=== PATIENT | female | born 1935 | race African-American/Black ===

== ENCOUNTER 2017-04-28 22:55 | Inpatient (IN) | payer MEDICARE, OTHER ==
[2017-04-28] MEDS ORDERED: VALSARTAN 160 MG TABLET PO ONE (23:33)
--- NOTE | 2017-04-28 23:37 | ER Document Report ---
ED General - General Chief Complaint: Weakness Stated Complaint: BLOOD PRESSURE ISSUE Time Seen by Provider: 04/28/17 23:20 Notes: Patient is an 82-year-old female presents with complaint of weakness. History is not clear. Son is at the bedside and said he can check on her today and she was lying on the couch unable to get up. She also bruising on her face from where she had fallen. Patient says she thinks she is fallen twice but does not really remember. She is also very hypertensive. Son found a small bag medications next to her bed and found other medications throughout the house. It appears that she has not been taking most of these medications. Patient herself says she does not remember which medications she has been taking her family. She denies any pain at this time. She denies any recent fevers or infections. The son says he last saw HER-2 weeks ago and she was walking acting completely normally. When he found her today she is unable to even sit up off the couch. Patient denies feeling nauseous or sick in her stomach. TRAVEL OUTSIDE OF THE [place] IN LAST 30 DAYS: No - Related Data Allergies/Adverse Reactions: No Known Allergies Allergy (Verified 04/28/17 22:56) Past Medical History - Social History Smoking Status: Never Smoker Frequency of alcohol use: None Drug Abuse: None Family History: Reviewed & Not Pertinent - Past Medical History Cardiac Medical History: Reports: Hx Hypercholesterolemia, Hx Hypertension Endocrine Medical History: Reports: Hx Diabetes Mellitus Type 2 Past Surgical History: Reports: Hx Oral Surgery - r hip replacement, Hx Orthopedic Surgery - r hip replacement - Immunizations Hx Diphtheria, Pertussis, Tetanus Vaccination: - unk Review of Systems - Review of Systems Notes: My Normal Review Basic REVIEW OF SYSTEMS: CONSTITUTIONAL : Denies fever, chills, or sweats. Denies recent illness. EENT: Denies eye, ear, throat, or mouth pain or symptoms. Denies nasal or sinus congestion. CARDIOVASCULAR: Denies chest pain. RESPIRATORY: Denies cough, cold, or chest congestion. Denies shortness of breath, difficulty breathing, or wheezing. GASTROINTESTINAL: Denies abdominal pain. Denies nausea, vomiting, or diarrhea. GENITOURINARY: Denies difficulty urinating, painful urination, burning, frequency, or blood in urine. MUSCULOSKELETAL: Denies neck or back pain or joint pain or swelling. SKIN: Denies rash or skin lesions. NEUROLOGICAL: Unclear if patient had loss of consciousness. She denies headache. Patient unable to ambulate. ALL OTHER SYSTEMS REVIEWED AND NEGATIVE. Physical Exam - Vital signs Vitals: Resp BP Pulse Ox 22 H 233/89 H 100 04/28/17 23:33 04/28/17 23:33 04/28/17 23:33 - Notes Notes: General Appearance: Well nourished, alert, cooperative, no acute distress, no obvious discomfort. Vitals: reviewed, See vital signs table. Head: Bruising on head and over anterior face. Eyes: PERRL, EOMI, Conjuctiva clear Mouth: No decreasd moisture Throat: No tonsillar inflammation, No airway obstruction, No lymphadenopathy Neck: Supple, no cervical spinal tenderness to palpation. No step-offs or deformities. Back: No thoracic or lumbar spine tenderness palpation. No step-offs or deformities. Lungs: No wheezing, No rales, No rhonci, No accessory muscle use, good air exchange bilaterally. Heart: Normal rate, Regular rythm, No murmur, no rub Abdomen: soft, No rigidity, No abdominal tenderness, No guarding, no rebound, no abdominal masses, no organomegaly Extremities: good pulses in all extremities, no swelling or tenderness in the extremities, no edema. Skin: warm, dry, appropriate color, multiple moles which patient and son say are chronic. Neuro: speech clear, oriented x 3, normal affect, she responds appropriately to most questions but appears to have difficulty remembering or at least recalling what is happened over the last week. When I asked the patient to stand up she is unable to even sit up out of bed on her own power. She has equal strength in both her hands and her feet. Strength with plantar and dorsiflexion against resistance is good. She has good distal sensation. Cranial nerves II through XII are intact. Course - Re-evaluation Re-evalutation: 04/29/17 04:53 Patient does have some worsening confusion during her stay here. It is unclear the exact cause. She may have had a stroke. If this is related to a stroke she is well outside the window for any type of thrombolytic treatment. This could also be hypertensive urgency. She does not have a fever or any signs of infection. She denies any pain anywhere. She denies headache or abdominal pain or chest pain. I did give her some of her home medications to help slowly bring down her blood pressure. I did not want to decrease her blood pressure too much. I did also speak with the hospitalist, Dr. Krueger, who agreed to admit the patient for further workup and treatment. Dictation of this chart was performed using voice recognition software; therefore, there may be some unintended grammatical errors. 04/29/17 04:56 - Vital Signs Vital signs: Temp Pulse Resp BP Pulse Ox 55 L 23 H 178/60 H 93 04/29/17 03:00 04/29/17 04:05 04/29/17 04:05 04/29/17 04:05 - Laboratory Result Diagrams: 04/29/17 00:15 04/29/17 00:15 Laboratory results interpreted by me: 04/29/17 04/29/17 04/29/17 00:15 00:15 00:15 RDW 15.7 H Plt Count 126 L Sodium 146.9 H Chloride 110 H BUN 23 H Creatinine 1.32 H Est GFR ( Amer) 47 L Est GFR (Non-Af Amer) 38 L Direct Bilirubin 0.7 H AST 107 H Creatine Kinase 2093 H CK-MB (CK-2) 20.70 H Urine Protein Urine Ketones Urine Blood 04/29/17 01:18 RDW Plt Count Sodium Chloride BUN Creatinine Est GFR ( Amer) Est GFR (Non-Af Amer) Direct Bilirubin AST Creatine Kinase CK-MB (CK-2) Urine Protein 100 H Urine Ketones TRACE H Urine Blood MODERATE H Discharge - Discharge Clinical Impression: Hypertensive urgency, Ataxia Condition: Stable Disposition: ADMITTED INPATIENT Admitting Provider: Hospitalist Unit Admitted: [facility]
[2017-04-29 00:35] LABS: ABSOLUTE BASOPHILS # (AUTO) 0.1 10^3/uL (0.0-0.2); ABSOLUTE LYMPHOCYTES (AUTO) 1.5 10^3/uL (0.5-4.7); ABSOLUTE MONOCYTES (AUTO) 0.7 10^3/uL (0.1-1.4); ABSOLUTE NEUT (AUTO) 4.2 10^3/uL (1.7-8.2); EOSINOPHILS % (AUTO) 0.7 % (0-6); HEMATOCRIT 44.9 % (36.0-47.0); HEMOGLOBIN 14.5 g/dL (12.0-15.5); LYMPHOCYTES % (AUTO) 22.8 % (13-45); MEAN CORPUSCULAR HEMOGLOBIN 27.8 pg (27.0-33.4); MEAN CORPUSCULAR HGB CONC 32.2 g/dL (32.0-36.0); MEAN CORPUSCULAR VOLUME 86 fl (80-97); MONOCYTES % (AUTO) 10.6 % (3-13); PLATELET COUNT 126 10^3/uL (150-450); RED CELL DISTRIBUTION WIDTH 15.7 % (11.5-14.0); SEGMENTED NEUTROPHILS % (AUTO) 64.9 % (42-78); TOTAL CELLS COUNTED % (AUTO) 100 %; WHITE BLOOD COUNT 6.4 10^3/uL (4.0-10.5)
[2017-04-29 00:42] LABS: ALANINE AMINOTRANSFERASE 42 U/L (9-52); ALBUMIN 4.4 g/dL (3.5-5.0); ALKALINE PHOSPHATASE 66 U/L (38-126); ANION GAP 12 (5-19); ASPARTATE AMINO TRANSFERASE 107 U/L (14-36); BILIRUBIN,DIRECT 0.7 mg/dL (0.0-0.4); BLOOD UREA NITROGEN 23 mg/dL (7-20); CALCIUM 10.1 mg/dL (8.4-10.2); CARBON DIOXIDE 25 mmol/L (22-30); CHLORIDE 110 mmol/L (98-107); GLUCOSE 92 mg/dL (75-110); SODIUM 146.9 mmol/L (137-145); TOTAL PROTEIN 8.1 g/dL (6.3-8.2)
[2017-04-29 00:55] LABS: CREATINE KINASE 2093 U/L (30-135)
[2017-04-29 00:58] LABS: CREATINE KINASE MB 20.7 ng/mL (<4.55)
[2017-04-29 01:01] LABS: TROPONIN I 0.065 ng/mL
--- NOTE | 2017-04-29 01:10 | RADIOLOGY REPORT (SQ) ---
EXAM DESCRIPTION: CHEST SINGLE VIEW CLINICAL HISTORY: 82 years Female, weakness COMPARISON: 04/27/17. NUMBER OF VIEWS/TECHNIQUE: 1/AP LIMITATIONS: None. FINDINGS: Mild enlargement of the cardiac silhouette. Atherosclerosis. Moderate lung volume. Mild osteoarthritis. IMPRESSION: Mild cardiac enlargement.
[2017-04-29] MEDS ORDERED: NEBIVOLOL HCL 10 MG TABLET PO ONE (01:11)
--- NOTE | 2017-04-29 01:15 | RADIOLOGY REPORT (SQ) ---
EXAM DESCRIPTION: CT HEAD WITHOUT CLINICAL HISTORY: 82 years Female, weakness,fall COMPARISON: None. TECHNIQUE: No contrast. This exam was performed according to our departmental dose-optimization program, which includes automated exposure control, adjustment of the mA and/or kV according to patient size and/or use of iterative reconstruction technique. FINDINGS: No hemorrhage. No mass, mass effect, or midline shift. 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 Brain and extra-axial structures appear intact. IMPRESSION: No acute findings.
[2017-04-29] MEDS ORDERED: CLONIDINE HCL 0.1 MG TABLET PO ONE (01:16)
--- NOTE | 2017-04-29 01:21 | RADIOLOGY REPORT (SQ) ---
EXAM DESCRIPTION: CT CERVICAL SPINE WITHOUT CLINICAL HISTORY: 82 years Female, weakness,fall COMPARISON: None. FINDINGS: No evidence of fracture or subluxation. Normal vertebral heights.Mild disc desiccation between the C3 and C5 levels. Mild T1-T2 disc desiccation. 1.4 cm low-attenuation nodule/lesion characterized as "not clinically significant"; no follow-up imaging recommended. Atherosclerosis. Unenhanced nuchal soft tissues, inferior cranium, and upper thorax appear otherwise grossly intact. Impression: No acute findings.
[2017-04-29] MEDS ORDERED: HYDROCHLOROTHIAZIDE 25 MG TABLET PO ONE (01:22)
[2017-04-29] MEDS ORDERED: MAG HYDROX/AL HYDROX/SIMETH SUSP 30 ML UDCUP PO PRN (01:30)
[2017-04-29 01:52] LABS: APPEARANCE,URINE CLEAR; BILIRUBIN,URINE NEGATIVE (NEGATIVE); COLOR,URINE YELLOW; GLUCOSE, URINE NEGATIVE (NEGATIVE); KETONES,URINE TRACE mg/dL (NEGATIVE); LEUKOCYTE ESTERASE,URINE NEGATIVE (NEGATIVE); NITRITE,URINE NEGATIVE (NEGATIVE); PROTEIN,URINE 100 mg/dL (NEGATIVE); URINE SPECIFIC GRAVITY 1.013; UROBILINOGEN,URINE NEGATIVE mg/dL (<2.0)
[2017-04-29] MEDS ORDERED: DEXTROSE 40% GEL 15 GM TUBE PO PRN ×2 (02:24)
[2017-04-29] MEDS ORDERED: DEXTROSE 50%-WATER 25 GM/50 ML DISP.SYRIN IV PRN ×2 (02:24)
[2017-04-29] MEDS ORDERED: GLUCAGON,HUMAN RECOMB 1 MG INJ IM PRN (02:24)
[2017-04-29] MEDS ORDERED: INSULIN LISPRO 100 UNIT/ML 3 ML VIAL SUBCUT PRN (02:24)
--- NOTE | 2017-04-29 02:37 | PDOC H&P ---
History of Present Illness Admission Date/PCP: 04/29/17 01:32 ISAC GREEN MD Patient complains of: Confusion History of Present Illness: DEANDRE MITCHELL is a 82 year old with a past medical history of hypertension, diabetes and vascular dementia. Patient presents with confusion and weakness after being found lying on the sofa for an estimated 24 hours with bruising over the left brow and inability to ambulate. She is a very poor historian and unable to provide details believing it is 1979. She was last seen at her baseline 2 weeks ago. Patient denies pain and is unaware of her medication regiment. In the emergency room she is found to have a workup remarkable for hypertensive emergency with a blood pressure of 220/90, acute renal failure and rhabdomyolysis. She receives IV had hydralazine and referred to the hospitalist for admission. Past Medical History Cardiac Medical History: Reports: Hyperlipidema, Hypertension Endocrine Medical History: Reports: Diabetes Mellitus Type 2 Psychiatric Medical History: Reports: Dementia Past Surgical History Past Surgical History: Reports: Orthopedic Surgery - r hip replacement Social History Information Source: Relative Lives with: Alone Smoking Status: Never Smoker Frequency of Alcohol Use: None Drugs: None - Advance Directive Resuscitation Status: Full Code Family History Family History: Hypertension Parental Family History Reviewed: Yes Children Family History Reviewed: Yes Sibling(s) Family History Reviewed.: Yes Medication/Allergy Home Medications: Acetaminophen with Codeine [Tylenol #3 Tablet] 1 each PO Q6HP PRN #14 tablet 08/02 Glipizide 2 mg PO DAILY 03/11/11 Nebivolol HCl [Bystolic] 40 mg PO DAILY 03/11/11 Naproxen 500 mg PO Q8 #30 tablet 07/23/15 Allergies/Adverse Reactions: No Known Allergies Allergy (Verified 04/28/17 22:56) Review of Systems ROS unobtainable: Due to mental status - Unobtainable Physical Exam Vital Signs: Temp Pulse Resp BP Pulse Ox 68 18 222/71 H 99 04/29/17 00:00 04/29/17 01:45 04/29/17 01:45 04/29/17 01:45 General appearance: PRESENT: cooperative, disheveled, mild distress. ABSENT: hard of hearing, morbidly obese, severe distress Head exam: PRESENT: other - Bruising over the left brow with dried blood, no open laceration Eye exam: PRESENT: conjunctiva pink, EOMI, PERRLA. ABSENT: scleral icterus Ear exam: PRESENT: normal external ear exam Mouth exam: PRESENT: moist, tongue midline Neck exam: ABSENT: carotid bruit, JVD, lymphadenopathy, thyromegaly Respiratory exam: PRESENT: clear to auscultation neelima. ABSENT: rales, rhonchi, wheezes Cardiovascular exam: PRESENT: RRR, systolic murmur. ABSENT: diastolic murmur, rubs Pulses: PRESENT: normal dorsalis pedis pul Vascular exam: PRESENT: normal capillary refill GI/Abdominal exam: PRESENT: normal bowel sounds, soft. ABSENT: distended, guarding, mass, organolmegaly, rebound, tenderness Rectal exam: PRESENT: deferred Extremities exam: PRESENT: +1 edema Neurological exam: PRESENT: alert, altered, awake, oriented to person, CN II- XII grossly intact. ABSENT: motor sensory deficit Psychiatric exam: PRESENT: appropriate affect, normal mood. ABSENT: homicidal ideation, suicidal ideation Skin exam: PRESENT: dry, intact, warm. ABSENT: cyanosis, rash Results Impressions: Chest X-Ray 04/28/17 23:30 IMPRESSION: Mild cardiac enlargement. Head CT 04/29/17 00:00 IMPRESSION: No acute findings. Assessment & Plan - Diagnosis (1) Vascular dementia Is this a current diagnosis for this admission?: Yes Plan: Supportive care, discharge planning for placement (2) Diabetes Is this a current diagnosis for this admission?: Yes Plan: Medication reconciliation, Humalog with sliding scale initiated (3) Rhabdomyolysis Is this a current diagnosis for this admission?: Yes Plan: Secondary to fall and prolonged immobility, specialty bed. Gentle IV fluids follow-up total CK (4) Hypertensive urgency Is this a current diagnosis for this admission?: Yes Plan: IV hydralazine, resume home Bystolic with as needed Vasotec. Avoid overcorrection given risk of watershed and chronically hypertensive patient. - Time Time Spent: 50 to 70 Minutes - Inpatient Certification Medical Necessity: Need Close Monitoring Due to Risk of Patient Decompensation
[2017-04-29] MEDS ORDERED: HYDRALAZINE HCL INJ/PF 20 MG/1 ML SDV IV ONE (03:17)
[2017-04-29] MEDS: HEPARIN SOD (PORCINE) 5,000 UNIT/ML 1 ML SYRINGE SUBCUT SCH ×3 (06:04→21:36)
[2017-04-29 07:09] LABS: CREATINE KINASE MB 20.6 ng/mL (<4.55); TROPONIN I 0.073 ng/mL
[2017-04-29] MEDS: ASPIRIN 81 MG TABLET, ENT COATED PO SCH (10:25)
[2017-04-29] MEDS: NEBIVOLOL HCL 10 MG TABLET PO SCH (10:25)
[2017-04-29] MEDS: DOCUSATE SODIUM 100 MG CAPSULE PO SCH ×2 (10:25→17:25)
[2017-04-29] MEDS: HYDRALAZINE HCL INJ/PF 20 MG/1 ML SDV IV PRN (11:38)
[2017-04-30] MEDS: HEPARIN SOD (PORCINE) 5,000 UNIT/ML 1 ML SYRINGE SUBCUT SCH ×3 (05:08→22:42)
[2017-04-30 07:11] LABS: ABSOLUTE EOSINOPHILS # (AUTO) 0.1 10^3/uL (0.0-0.6); ABSOLUTE LYMPHOCYTES (AUTO) 1.8 10^3/uL (0.5-4.7); ABSOLUTE MONOCYTES (AUTO) 0.5 10^3/uL (0.1-1.4); ABSOLUTE NEUT (AUTO) 1.9 10^3/uL (1.7-8.2); BASOPHILS % (AUTO) 0.3 % (0-2); HEMATOCRIT 41.8 % (36.0-47.0); HEMOGLOBIN 13.6 g/dL (12.0-15.5); LYMPHOCYTES % (AUTO) 41.2 % (13-45); MEAN CORPUSCULAR HEMOGLOBIN 27.8 pg (27.0-33.4); MEAN CORPUSCULAR HGB CONC 32.5 g/dL (32.0-36.0); MEAN CORPUSCULAR VOLUME 86 fl (80-97); MONOCYTES % (AUTO) 11.9 % (3-13); RED CELL DISTRIBUTION WIDTH 15.4 % (11.5-14.0); SEGMENTED NEUTROPHILS % (AUTO) 43.6 % (42-78); TOTAL CELLS COUNTED % (AUTO) 100 %; WHITE BLOOD COUNT 4.4 10^3/uL (4.0-10.5)
[2017-04-30 07:33] LABS: PLATELET COUNT 126 10^3/uL (150-450)
[2017-04-30 07:36] LABS: CHOLESTEROL 270.44 mg/dL (0-200); TRIGLYCERIDES 81 mg/dL (<150)
[2017-04-30 07:38] LABS: ANION GAP 9 (5-19); BLOOD UREA NITROGEN 24 mg/dL (7-20); CALCIUM 9.7 mg/dL (8.4-10.2); CARBON DIOXIDE 26 mmol/L (22-30); CHLORIDE 109 mmol/L (98-107); CREATINE KINASE 672 U/L (30-135); GLUCOSE 89 mg/dL (75-110); POTASSIUM 3.5 mmol/L (3.6-5.0); SODIUM 143.9 mmol/L (137-145)
[2017-04-30 07:47] LABS: DIRECT LDL 177 mg/dL (<100)
[2017-04-30] MEDS: HYDRALAZINE HCL INJ/PF 20 MG/1 ML SDV IV PRN (08:17)
[2017-04-30] MEDS: DOCUSATE SODIUM 100 MG CAPSULE PO SCH ×2 (10:57→17:53)
[2017-04-30] MEDS: ASPIRIN 81 MG TABLET, ENT COATED PO SCH (10:58)
[2017-04-30] MEDS: NEBIVOLOL HCL 10 MG TABLET PO SCH (10:58)
--- NOTE | 2017-04-30 14:51 | PDOC PROGRESS REPORT ---
Subjective Progress Note for:: 04/30/17 Subjective:: Patient admitted with the confusion as well as weakness and was found to have hypertensive encephalopathy with an initial blood pressure of 04/06/1989 as well as acute renal failure and rhabdomyolysis. Her confusion seems to have cleared and patient appears to be at baseline. Her blood pressures still intermittently hypertensive. Her creatinine remains at about 1.32 while her CPK is decreased from 2000-672 today. Reason For Visit: HTN EMERG, RHABDO Physical Exam Vital Signs: Temp Pulse Resp BP Pulse Ox 97.8 F 69 16 152/49 H 96 04/30/17 12:00 04/30/17 12:00 04/30/17 12:00 04/30/17 12:00 04/30/17 12:00 Intake & Output 04/29/17 04/30/17 05/01/17 06:59 06:59 06:59 Intake Total 260 Output Total 600 Balance -340 Weight 75.4 kg 75.5 kg General appearance: PRESENT: no acute distress, cooperative Head exam: PRESENT: atraumatic Ear exam: PRESENT: normal external ear exam Neck exam: ABSENT: carotid bruit, JVD, lymphadenopathy, thyromegaly Respiratory exam: PRESENT: clear to auscultation neelima. ABSENT: rales, rhonchi, wheezes Cardiovascular exam: PRESENT: RRR. ABSENT: diastolic murmur, rubs, systolic murmur GI/Abdominal exam: PRESENT: normal bowel sounds, soft. ABSENT: distended, guarding, mass, organolmegaly, rebound, tenderness Rectal exam: PRESENT: deferred Neurological exam: PRESENT: alert, awake, oriented to person, oriented to place , oriented to time Psychiatric exam: PRESENT: appropriate affect, normal mood. ABSENT: homicidal ideation, suicidal ideation Results Laboratory Results: 04/30/17 06:34 04/30/17 06:34 04/30/17 04/30/17 04/30/17 06:34 06:34 06:34 WBC 4.4 RBC 4.90 Hgb 13.6 Hct 41.8 MCV 86 MCH 27.8 MCHC 32.5 RDW 15.4 H Plt Count 126 L Seg Neutrophils % 43.6 Lymphocytes % 41.2 Monocytes % 11.9 Eosinophils % 3.0 Basophils % 0.3 Absolute Neutrophils 1.9 Absolute Lymphocytes 1.8 Absolute Monocytes 0.5 Absolute Eosinophils 0.1 Absolute Basophils 0.0 Sodium 143.9 Potassium 3.5 L Chloride 109 H Carbon Dioxide 26 Anion Gap 9 BUN 24 H Creatinine 1.31 H Est GFR ( Amer) 47 L Est GFR (Non-Af Amer) 39 L Glucose 89 Calcium 9.7 Triglycerides 81 Cholesterol 270.44 H LDL Cholesterol Direct 177 H VLDL Cholesterol 16.0 HDL Cholesterol 59 04/29/17 04/29/17 04/29/17 06:35 06:35 06:35 Creatine Kinase 1229 H CK-MB (CK-2) 20.60 H Cancelled Troponin I 0.073 04/29/17 04/29/17 04/29/17 12:41 12:41 19:20 Creatine Kinase CK-MB (CK-2) 16.70 H Troponin I 0.048 0.051 04/30/17 06:34 Creatine Kinase 672 H CK-MB (CK-2) Troponin I Impressions: Chest X-Ray 04/28/17 23:30 IMPRESSION: Mild cardiac enlargement. Head CT 04/29/17 00:00 IMPRESSION: No acute findings. Assessment & Plan - Diagnosis (1) Hypertensive urgency Is this a current diagnosis for this admission?: Yes Plan: Blood pressure is much better improved and will continue to adjust (2) Rhabdomyolysis Qualifiers: Encounter type: subsequent encounter Is this a current diagnosis for this admission?: Yes Plan: Patient was found laying on the floor unspecified.. We will continue to check her CPK and monitor her kidney function (3) Chronic kidney disease (CKD) Qualifiers: Chronic kidney disease stage: stage 3 (moderate) Qualified Code(s): N18.3 - Chronic kidney disease, stage 3 (moderate) Is this a current diagnosis for this admission?: Yes Plan: I suspect patient has underlying chronic kidney disease. There is no prior kidney function on computer records (4) Vascular dementia Is this a current diagnosis for this admission?: Yes Plan: Appropriate for age however patient is apparently self-sufficient. She tells me that she lives alone. Physical therapy evaluation will be obtained to ensure safe return home - Time Time Spent with patient: 15-24 minutes Medications reviewed and adjusted accordingly: Yes Anticipated discharge: Home Within: within 48 hours
[2017-04-30] MEDS: DEXTROSE 5%-1/2 NORMAL SALINE 1,000 ML IV PRN (15:06)
[2017-05-01] MEDS: HEPARIN SOD (PORCINE) 5,000 UNIT/ML 1 ML SYRINGE SUBCUT SCH ×3 (05:18→21:08)
[2017-05-01 05:21] LABS: ANION GAP 11 (5-19); BLOOD UREA NITROGEN 31 mg/dL (7-20); CALCIUM 9.3 mg/dL (8.4-10.2); CARBON DIOXIDE 24 mmol/L (22-30); CHLORIDE 106 mmol/L (98-107); GLUCOSE 114 mg/dL (75-110); POTASSIUM 3.4 mmol/L (3.6-5.0); SODIUM 141.4 mmol/L (137-145)
[2017-05-01] MEDS: HYDRALAZINE HCL INJ/PF 20 MG/1 ML SDV IV PRN (09:58)
[2017-05-01] MEDS: ASPIRIN 81 MG TABLET, ENT COATED PO SCH (09:59)
[2017-05-01] MEDS: DOCUSATE SODIUM 100 MG CAPSULE PO SCH ×2 (09:59→17:23)
[2017-05-01] MEDS: NEBIVOLOL HCL 10 MG TABLET PO SCH (09:59)
[2017-05-01] MEDS ORDERED: POTASSIUM CHLORIDE 10 MEQ TABLET.SA PO ONE (15:30)
[2017-05-01] MEDS ORDERED: AMLODIPINE BESYLATE 5 MG TABLET PO ONE (15:30)
--- NOTE | 2017-05-01 15:34 | PDOC PROGRESS REPORT ---
Subjective Progress Note for:: 05/01/17 Subjective:: Patient admitted with the confusion as well as weakness and was found to have hypertensive encephalopathy with an initial blood pressure of 04/06/1989 as well as acute renal failure and rhabdomyolysis. Her confusion seems to have cleared and patient appears to be at baseline. Her blood pressures still intermittently hypertensive. Her creatinine remains at about 1.32 while her CPK is decreased from 2000-672 today. Reason For Visit: HTN EMERG, RHABDO Physical Exam Vital Signs: Temp Pulse Resp BP Pulse Ox 98.1 F 66 16 210/80 H 99 05/01/17 08:00 05/01/17 08:00 05/01/17 08:00 05/01/17 08:00 05/01/17 08:00 Intake & Output 04/30/17 05/01/17 05/02/17 06:59 06:59 06:59 Intake Total 260 2100 Output Total 600 Balance -340 2100 Weight 75.5 kg 75.6 kg General appearance: PRESENT: no acute distress, other - elderly female Head exam: PRESENT: atraumatic Ear exam: PRESENT: normal external ear exam Respiratory exam: PRESENT: clear to auscultation neelima. ABSENT: rales, rhonchi, wheezes Cardiovascular exam: PRESENT: RRR. ABSENT: diastolic murmur, rubs, systolic murmur Rectal exam: PRESENT: deferred Extremities exam: PRESENT: full ROM. ABSENT: calf tenderness, clubbing, pedal edema Musculoskeletal exam: PRESENT: ambulatory Neurological exam: PRESENT: alert, oriented to person, oriented to place, oriented to time Psychiatric exam: PRESENT: appropriate affect, normal mood. ABSENT: homicidal ideation, suicidal ideation Skin exam: PRESENT: dry, intact, warm. ABSENT: cyanosis, rash Results Laboratory Results: 04/30/17 06:34 05/01/17 03:56 05/01/17 03:56 Sodium 141.4 Potassium 3.4 L Chloride 106 Carbon Dioxide 24 Anion Gap 11 BUN 31 H Creatinine 1.52 H Est GFR ( Amer) 40 L Est GFR (Non-Af Amer) 33 L Glucose 114 H Calcium 9.3 04/29/17 04/29/17 04/29/17 06:35 06:35 06:35 Creatine Kinase 1229 H CK-MB (CK-2) 20.60 H Cancelled Troponin I 0.073 04/29/17 04/29/17 04/29/17 12:41 12:41 19:20 Creatine Kinase CK-MB (CK-2) 16.70 H Troponin I 0.048 0.051 04/30/17 05/01/17 05/01/17 06:34 03:56 03:56 Creatine Kinase 672 H 349 H CK-MB (CK-2) 3.91 Troponin I Impressions: Chest X-Ray 04/28/17 23:30 IMPRESSION: Mild cardiac enlargement. Head CT 04/29/17 00:00 IMPRESSION: No acute findings. Assessment & Plan - Diagnosis (1) Hypertensive urgency Is this a current diagnosis for this admission?: Yes Plan: Blood pressure is still not controlled and will continue to adjust meds for optimal control (2) Rhabdomyolysis Qualifiers: Encounter type: subsequent encounter Is this a current diagnosis for this admission?: Yes Plan: Patient was found laying on the floor. CPK was elevated but now resolving (3) Chronic kidney disease (CKD) Qualifiers: Chronic kidney disease stage: stage 3 (moderate) Qualified Code(s): N18.3 - Chronic kidney disease, stage 3 (moderate) Is this a current diagnosis for this admission?: Yes Plan: I suspect patient has underlying chronic kidney disease. Will continue to hydrate (4) Vascular dementia Is this a current diagnosis for this admission?: Yes (5) Dyslipidemia Is this a current diagnosis for this admission?: Yes Plan: Hold off on statin now due to Rhabdo. Can start as outpatient (6) Hypertensive encephalopathy Is this a current diagnosis for this admission?: Yes Plan: Due to her BP, appears to be resolved - Time Time Spent with patient: 15-24 minutes Medications reviewed and adjusted accordingly: Yes Anticipated discharge: Home Within: within 48 hours - Inpatient Certification Based on my medical assessment, after consideration of the patient's comorbidities, presenting symptoms, or acuity I expect that the services needed warrant INPATIENT care.: Yes Medical Necessity: Need Close Monitoring Due to Risk of Patient Decompensation, Risk of Complication if Not Cared For in Hospital
[2017-05-01] MEDS: DEXTROSE 5%-1/2 NORMAL SALINE 1,000 ML IV PRN (19:45)
[2017-05-02] MEDS: HEPARIN SOD (PORCINE) 5,000 UNIT/ML 1 ML SYRINGE SUBCUT SCH ×2 (04:46→13:47)
[2017-05-02 07:47] LABS: ANION GAP 8 (5-19); BLOOD UREA NITROGEN 30 mg/dL (7-20); CALCIUM 9.3 mg/dL (8.4-10.2); CARBON DIOXIDE 23 mmol/L (22-30); CHLORIDE 112 mmol/L (98-107); GLUCOSE 98 mg/dL (75-110); POTASSIUM 3.7 mmol/L (3.6-5.0); SODIUM 142.8 mmol/L (137-145)
[2017-05-02] MEDS: NEBIVOLOL HCL 10 MG TABLET PO SCH (09:12)
[2017-05-02] MEDS: DEXTROSE 5%-1/2 NORMAL SALINE 1,000 ML IV PRN (09:13)
[2017-05-02] MEDS: ASPIRIN 81 MG TABLET, ENT COATED PO SCH (09:14)
[2017-05-02] MEDS: DOCUSATE SODIUM 100 MG CAPSULE PO SCH (09:14)
[2017-05-02] MEDS ORDERED: AMLODIPINE BESYLATE 5 MG TABLET PO SCH (10:00)
--- NOTE | 2017-05-02 10:06 | PDOC DISCHARGE SUMMARY ---
General - Admit/Disc Date/PCP Admission Date/Primary Care Provider: 04/29/17 01:32 ISAC GREEN MD Discharge Date: 05/02/17 - Discharge Diagnosis (1) Hypertensive urgency Is this a current diagnosis for this admission?: Yes (2) Rhabdomyolysis Is this a current diagnosis for this admission?: Yes (3) Chronic kidney disease (CKD) Is this a current diagnosis for this admission?: Yes (4) Vascular dementia Is this a current diagnosis for this admission?: Yes (5) Dyslipidemia Is this a current diagnosis for this admission?: Yes (6) Hypertensive encephalopathy Is this a current diagnosis for this admission?: Yes - Additional Information Resuscitation Status: Full Code Discharge Diet: Cardiac, Diabetic Discharge Activity: Activity As Tolerated Home Medications: Allopurinol [Zyloprim 300 mg Tablet] 300 mg PO DAILY 04/29/17 Bumetanide [Bumex 1 mg Tablet] 1 mg PO DAILY 04/29/17 Clonidine HCl [Catapres 0.1 mg Tablet] 0.1 mg PO QHS 04/29/17 Glimepiride [Amaryl 1 mg Tablet] 0.5 mg PO DAILY 04/29/17 Valsartan [Diovan] 320 mg PO DAILY 04/29/17 Nebivolol HCl [Bystolic 10 mg Tablet] 40 mg PO DAILY #0 tablet 05/02/17 History of Present Illness History of Present Illness: DEANDRE MITCHELL is a 82 year old female BRYAN MITCHELL is a 82 year old with a past medical history of hypertension, diabetes and vascular dementia. Patient presents with confusion and weakness after being found lying on the sofa for an estimated 24 hours with bruising over the left brow and inability to ambulate. She is a very poor historian and unable to provide details believing it is 1979. She was last seen at her baseline 2 weeks ago. Patient denies pain and is unaware of her medication regiment. In the emergency room she is found to have a workup remarkable for hypertensive emergency with a blood pressure of 220/90, and rhabdomyolysis. She was referred to the hospitalist for admission. Hospital Course Hospital Course: This patient was admitted with confusion and weakness after being found laying on the sofa for about 24hours. She was initially confused but this has cleared and patient is likely at baseline at this time. She was found to be in rhabdomyolysis and she was found to be dehydrated. Her blood pressure was poorly controlled with initial systolic of more than 220. Patient was started on intravenous fluid and a CPK has gradually improved from a high of about 2600- 349. Her blood pressure was also improved and she has been restarted back on home medications. Kidney function has remained relatively stable. Patient does have a history of dyslipidemia but she is currently on no statin and at this time I have deferred starting any due to her rhabdomyolysis but this should be reevaluated as outpatient and started as appropriate. Patient's mental status is improved and she appears to be back at her baseline. She has been evaluated by physical therapy and it is felt that she is safe to be discharged home with home health. Physical Exam Vital Signs: Temp Pulse Resp BP Pulse Ox 98.2 F 60 14 153/51 H 99 05/02/17 03:56 05/02/17 07:00 05/02/17 03:56 05/02/17 03:56 05/02/17 03:56 Intake & Output 05/01/17 05/02/17 05/03/17 06:59 06:59 06:59 Intake Total 2100 2136 Balance 2100 2136 Weight 75.6 kg 75.4 kg General appearance: PRESENT: no acute distress Head exam: PRESENT: atraumatic Ear exam: PRESENT: normal external ear exam Neck exam: PRESENT: carotid bruit Respiratory exam: PRESENT: clear to auscultation neelima. ABSENT: rales, rhonchi, wheezes Cardiovascular exam: PRESENT: RRR. ABSENT: diastolic murmur, rubs, systolic murmur GI/Abdominal exam: PRESENT: normal bowel sounds, soft. ABSENT: distended, guarding, mass, organolmegaly, rebound, tenderness Rectal exam: PRESENT: deferred Extremities exam: PRESENT: full ROM. ABSENT: calf tenderness, clubbing, pedal edema Musculoskeletal exam: PRESENT: ambulatory, full ROM Neurological exam: PRESENT: alert, awake, oriented to person, oriented to place , oriented to time, oriented to situation Psychiatric exam: PRESENT: appropriate affect, normal mood. ABSENT: homicidal ideation, suicidal ideation Results Laboratory Results: 04/30/17 06:34 05/02/17 06:33 05/02/17 06:33 Sodium 142.8 Potassium 3.7 Chloride 112 H Carbon Dioxide 23 Anion Gap 8 BUN 30 H Creatinine 1.26 H Est GFR ( Amer) 49 L Est GFR (Non-Af Amer) 41 L Glucose 98 Calcium 9.3 04/29/17 04/29/17 04/29/17 06:35 06:35 06:35 Creatine Kinase 1229 H CK-MB (CK-2) 20.60 H Cancelled Troponin I 0.073 04/29/17 04/29/17 04/29/17 12:41 12:41 19:20 Creatine Kinase CK-MB (CK-2) 16.70 H Troponin I 0.048 0.051 04/30/17 05/01/17 05/01/17 06:34 03:56 03:56 Creatine Kinase 672 H 349 H CK-MB (CK-2) 3.91 Troponin I 05/02/17 06:33 Creatine Kinase CK-MB (CK-2) 4.68 H Troponin I Impressions: Chest X-Ray 04/28/17 23:30 IMPRESSION: Mild cardiac enlargement. Head CT 04/29/17 00:00 IMPRESSION: No acute findings. Qualifiers - * PATEINT BEING DISCHARGED WITH ANY OF THE FOLLOWING DIAGNOSIS?: No Plan Discharge Plan: Follow-up with primary care physician in 1 week for reevaluation of her blood pressure and adjustment of medications as needed. Initiation of statin therapy for dyslipidemia is also suggested as appropriate. Time Spent: Greater than 30 Minutes
[2017-05-02 12:27] VITALS: BP 153/51
[2017-05-03] MEDS ORDERED: ASPIRIN 81 MG TABLET, ENT COATED PO SCH (10:00)
== END 2017-05-02 14:45 | disposition home health service (06) | DRG 305 ==
LOC: ER 22:55 → EH 04-29 01:32 → 5 04-29 18:20
PROVIDERS: ADMIT Internal Medicine; ATTEND Internal Medicine
DX: I16.0 Hypertensive urgency (principal); N17.9 Acute kidney failure, unspecified; I67.4 Hypertensive encephalopathy; E11.22 Type 2 diabetes mellitus with diabetic chronic kidney disease; M62.82 Rhabdomyolysis; I12.9 Hypertensive chronic kidney disease with stage 1 through stage 4 chronic kidney disease, or unspecified chronic kidney disease; N18.3 Chronic kidney disease, stage 3 (moderate); E78.00 Pure hypercholesterolemia, unspecified; R27.0 Ataxia, unspecified; F01.50 Vascular dementia, unspecified severity, without behavioral disturbance, psychotic disturbance, mood disturbance, and anxiety; Z79.84 Long term (current) use of oral hypoglycemic drugs; Z91.81 History of falling
CPT/HCPCS: 36415; 70450; 71045; 72125; 80048; 80053; 80061; 81001; 82550; 82553; 82962; 84443; 84484; 85025; 99285; G8978-GP; G8979-GP; J0360; J1644; J3490

== ENCOUNTER 2018-03-21 22:26 | Observation (INO) | payer MEDICARE ==
--- NOTE | 2018-03-22 01:32 | ER Document Report ---
ED Medical Screen (RME) - General Chief Complaint: Altered Mental Status Stated Complaint: ALTERED MENTAL STATUS Time Seen by Provider: 03/22/18 01:30 Primary Care Provider: ISAC GREEN MD [Primary Care Provider] - Follow up as needed Notes: Patient is an 82-year-old female who presents emergency department with a chief complaint of altered mental status per family. Patient is alert and oriented and she was brought in by ambulance. She denies any symptoms at this time. She denies any dysuria, nausea, vomiting, diarrhea, chest pain, or any other symptoms at this time. According to the triage nurse, her family stated she smells like urine when they found her at home. She was found on the ground by her family, therefore they called EMS. TRAVEL OUTSIDE OF THE [place] IN LAST 30 DAYS: No - Related Data Allergies/Adverse Reactions: No Known Allergies Allergy (Verified 04/28/17 22:56) Past Medical History - Past Medical History Cardiac Medical History: Reports: Hx Hypercholesterolemia, Hx Hypertension Endocrine Medical History: Reports: Hx Diabetes Mellitus Type 2 Renal/ Medical History: Denies: Hx Peritoneal Dialysis Psychiatric Medical History: Reports: Hx Dementia Past Surgical History: Reports: Hx Oral Surgery - r hip replacement, Hx Orthopedic Surgery - r hip replacement - Immunizations Hx Diphtheria, Pertussis, Tetanus Vaccination: - unk History of Influenza Vaccine for 11/2016 - 04/2017 Season: Yes Influenza Administration Date for 11/2016 - 04/2017 Season: 01/14/17 Physical Exam - Vital signs Vitals: Temp Pulse Resp BP Pulse Ox 98.9 F 80 16 179/81 H 97 03/21/18 22:29 03/21/18 22:29 03/21/18 22:29 03/21/18 22:29 03/21/18 22:29 - General General appearance: Alert - Neurological Orientation: AAOx4, Disoriented to person, Disoriented to place, Disoriented to time Hardy Coma Scale Eye Opening: Spontaneous Hardy Coma Scale Verbal: Oriented Hardy Coma Scale Motor: Obeys Commands Hardy Coma Scale Total: 15 Speech: Normal Course - Vital Signs Vital signs: Temp Pulse Resp BP Pulse Ox 98.9 F 80 16 179/81 H 97 03/21/18 22:29 03/21/18 22:29 03/21/18 22:29 03/21/18 22:29 03/21/18 22:29 Doctor's Discharge - Discharge Referrals: ISAC GREEN MD [Primary Care Provider] - Follow up as needed
[2018-03-22 01:53] LABS: ABSOLUTE LYMPHOCYTES (AUTO) 1.3 10^3/uL (0.5-4.7); ABSOLUTE MONOCYTES (AUTO) 0.5 10^3/uL (0.1-1.4); ABSOLUTE NEUT (AUTO) 3.6 10^3/uL (1.7-8.2); BASOPHILS % (AUTO) 0.8 % (0-2); EOSINOPHILS % (AUTO) 0.4 % (0-6); HEMATOCRIT 37.1 % (36.0-47.0); HEMOGLOBIN 12.4 g/dL (12.0-15.5); LYMPHOCYTES % (AUTO) 23.7 % (13-45); MEAN CORPUSCULAR HEMOGLOBIN 29.4 pg (27.0-33.4); MEAN CORPUSCULAR HGB CONC 33.3 g/dL (32.0-36.0); MEAN CORPUSCULAR VOLUME 88 fl (80-97); MONOCYTES % (AUTO) 9.8 % (3-13); PLATELET COUNT 153 10^3/uL (150-450); RED BLOOD COUNT 4.21 10^6/uL (3.72-5.28); RED CELL DISTRIBUTION WIDTH 16.4 % (11.5-14.0); SEGMENTED NEUTROPHILS % (AUTO) 65.3 % (42-78); TOTAL CELLS COUNTED % (AUTO) 100 %; WHITE BLOOD COUNT 5.5 10^3/uL (4.0-10.5)
[2018-03-22 02:04] LABS: ALANINE AMINOTRANSFERASE 16 U/L (9-52); ALBUMIN 4.3 g/dL (3.5-5.0); ALKALINE PHOSPHATASE 70 U/L (38-126); ANION GAP 11 (5-19); ASPARTATE AMINO TRANSFERASE 49 U/L (14-36); BILIRUBIN,DIRECT 0.3 mg/dL (0.0-0.4); BILIRUBIN,TOTAL 0.7 mg/dL (0.2-1.3); BLOOD UREA NITROGEN 23 mg/dL (7-20); CALCIUM 10.1 mg/dL (8.4-10.2); CARBON DIOXIDE 25 mmol/L (22-30); CHLORIDE 110 mmol/L (98-107); GLUCOSE 97 mg/dL (75-110); SODIUM 145.5 mmol/L (137-145); TOTAL PROTEIN 7.3 g/dL (6.3-8.2)
[2018-03-22 02:06] LABS: POTASSIUM 4.1 mmol/L (3.6-5.0)
--- NOTE | 2018-03-22 02:11 | RADIOLOGY REPORT (SQ) ---
EXAM DESCRIPTION: XR CHEST 1 VIEW COMPLETED DATE/TME: 03/22/2018 01:30 CLINICAL HISTORY: 82 years, Female, AMS COMPARISON: April 2017 report NUMBER OF VIEWS: One TECHNIQUE: AP view of the chest LIMITATIONS: None. FINDINGS: The lungs are clear. There are no pleural abnormalities. The cardiac silhouette is mildly enlarged. IMPRESSION: Mild cardiomegaly. copyright 2010 [employer]- All Rights Reserved
--- NOTE | 2018-03-22 02:13 | RADIOLOGY REPORT (SQ) ---
EXAM DESCRIPTION: CT HEAD WITHOUT IV CONTRAST COMPLETED DATE/TME: 03/22/2018 01:30 CLINICAL HISTORY: 82 years, Female, AMS COMPARISON: 04/29/2017 CT brain TECHNIQUE: 197 Images stored on PACS. All CT scanners at this facility use dose modulation, iterative reconstruction, and/or weight based dosing when appropriate to reduce radiation dose to as low as reasonably achievable (ALARA). [facility]: Dose Right [facility]: CareDose [facility]: Dose Right [facility]: Teradose 4D [facility]: [employer] LIMITATIONS: None. FINDINGS: The globes are intact. The paranasal sinuses and mastoid air cells are unremarkable. No displaced or depressed skull fracture. No intra or extra-axial hemorrhage. CT is limited for evaluation of acute infarct. There is no CT evidence for large or territorial acute infarct. Mild age-appropriate atrophy and minor small vessel ischemic change. Basal ganglia calcifications bilaterally. No mass or midline shift. IMPRESSION: Mild age-appropriate atrophy with minor small vessel ischemic change TECHNICAL DOCUMENTATION: Quality ID # 436: Final reports with documentation of one or more dose reduction techniques (e.g., Automated exposure control, adjustment of the mA and/or kV according to patient size, use of iterative reconstruction technique) copyright 2011 [employer]- All Rights Reserved
[2018-03-22] MEDS ORDERED: RINGERS SOLUTION,LACTATED 1,000 ML IV ONE ×2 (07:04→07:20)
--- NOTE | 2018-03-22 08:05 | ER Document Report ---
ED General - General Chief Complaint: Altered Mental Status Stated Complaint: ALTERED MENTAL STATUS Time Seen by Provider: 03/22/18 01:30 Notes: Patient is an 82-year-old female who presents emergency department with a chief complaint of altered mental status per family. Patient is alert and oriented and she was brought in by ambulance. She denies any symptoms at this time. She denies any dysuria, nausea, vomiting, diarrhea, chest pain, or any other symptoms at this time. According to the triage nurse, her family stated she smells like urine when they found her at home. She was found on the ground by her family, therefore they called EMS. Unfortunately her family members are not at bedside at this time. TRAVEL OUTSIDE OF THE [place] IN LAST 30 DAYS: No - Related Data Allergies/Adverse Reactions: No Known Allergies Allergy (Verified 04/28/17 22:56) Past Medical History - Social History Smoking Status: Unknown if Ever Smoked Family History: Reviewed & Not Pertinent Patient has suicidal ideation: No Patient has homicidal ideation: No - Past Medical History Cardiac Medical History: Reports: Hx Hypercholesterolemia, Hx Hypertension Endocrine Medical History: Reports: Hx Diabetes Mellitus Type 2 Renal/ Medical History: Denies: Hx Peritoneal Dialysis Psychiatric Medical History: Reports: Hx Dementia Past Surgical History: Reports: Hx Oral Surgery - r hip replacement, Hx O rthopedic Surgery - r hip replacement - Immunizations Hx Diphtheria, Pertussis, Tetanus Vaccination: - unk Review of Systems - Review of Systems Notes: REVIEW OF SYSTEMS: CONSTITUTIONAL : Denies recent illness. Denies recent unintentional weight loss. Denies fever, chills, or sweats. EENT: Denies eye, ear, throat, or mouth pain, discharge, or symptoms. Denies nasal or sinus congestion. CARDIOVASCULAR: Denies chest pain. RESPIRATORY: Denies shortness of breath, cough, congestion, difficulty breathing, or wheezing. GASTROINTESTINAL: Denies nausea, vomiting, and diarrhea. Denies abdominal pain. Denies constipation. GENITOURINARY: Denies difficulty urinating, burning, blood in urine, urgency or frequency. MUSCULOSKELETAL: Denies neck and back pain. Denies joint pain or swelling. SKIN: Denies rash, itchiness, or lesions HEMATOLOGIC : Denies easy bruising or bleeding. LYMPHATIC: Denies swollen, painful, enlarged glands. NEUROLOGICAL: Denies no numbness or tingling denies weakness. Denies headache. Denies altered mental status. Denies alteration in speech. PSYCHIATRIC: Denies stress, anxiety, alteration in sleep patterns, or depression. All other systems reviewed and negative. Physical Exam - Vital signs Vitals: Temp Pulse Resp BP Pulse Ox 98.9 F 80 16 179/81 H 97 03/21/18 22:29 03/21/18 22:29 03/21/18 22:29 03/21/18 22:29 03/21/18 22:29 - Notes Notes: PHYSICAL EXAMINATION: GENERAL: Appears stated age, tired, well-nourished, no acute distress. HEAD: Normocephalic, atraumatic. EYES: PERRL, conjunctiva normal, all extraocular movements intact, sclera nonicteric ENT: Dry mucous membranes. NECK: Supple, no noticeable swelling, redness, rash. Normal range of motion. LUNGS: Equal breath sounds bilaterally and clear to auscultation. No wheezes rales or rhonchi. CARDIOVASCULAR: S1-S2, regular rate, regular rhythm. Radial pulses 2+, normal. ABDOMEN: Normoactive bowel sounds. Soft, nontender, no guarding, no rebound tenderness, and no masses palpated. EXTREMITIES: Generalized weakness; Normal range of motion, 3+ pitting edema noted to bilateral lower extremities. No cyanosis. NEUROLOGICAL: Moves all extremities upon command. Strength 4/5 in all extremities. PSYCH: Forgetful, falls asleep easily when being asked questions. Oriented to person. Disoriented to place. SKIN: Warm, dry. No rash, lesions, ulcerations noted. Normal skin turgor. Course - Re-evaluation Re-evalutation: 04/01/18 05:15 Due to [employer] downtime, was unable to view the patient's laboratory studies and diagnostic studies until now. Her CBC is normal. Her chemistries show hypernatremia. I am awaiting a urinalysis. She will be straight cathed to get her urine. Her chest x-ray is normal with no evidence of pneumonia. CT of the head shows chronic ischemic changes normal atrophy from aging. No acute intracranial bleed or acute ischemic stroke noted. Patient's sister is at bedside and she is able to provide some history. According to the patient's sister, they found her on the floor and she was not acting right. 03/22/18 08:05 Awaiting straight cath and urinalysis. 03/22/18 09:49 The patient's urinalysis is unremarkable at this time. She is able to walk, but needs assistance. A troponin and CK will be added since she has a history of Rhabdomyolysis. The patient's [id number] has informed me that the patient will not let her sister help her and the patient's son is the person who makes decisions for his mother. The [id number] suggests I talked to the son to help in decision-making. I spoke with Rafy, the Retail Account Manager and presented the patient's case. She will see the patient. 03/22/18 10:03 I have attempted to call patient's son, but he did not answer. The patient states that she is willing to have her sister and [id number] help her. The patient's onvgmby-cg-dfy is stating that the patient's son should be the one to help his mother. I will attempt to call the patient's son again. 03/22/18 10:15 The patient's CK is . Her troponin is 0.042. Another troponin and ck will be ordered to assess trends. I will call Dr. Garcia for admission for altered mental status and rhabdomyolysis. 03/22/18 10:26 I have given report to Dr. Garcia. He will admit the patient to the medical floor. - Vital Signs Vital signs: Temp Pulse Resp BP Pulse Ox 98.6 F 84 20 165/63 H 98 03/22/18 21:14 03/22/18 16:47 03/22/18 20:02 03/22/18 20:02 03/22/18 20:02 - Laboratory Result Diagrams: 03/22/18 01:43 03/22/18 01:43 Laboratory results interpreted by me: 03/22/18 03/22/18 03/22/18 01:43 01:43 01:43 RDW 16.4 H Sodium 145.5 H Chloride 110 H BUN 23 H Est GFR ( Amer) 56 L Est GFR (Non-Af Amer) 46 L AST 49 H Creatine Kinase 546 H CK-MB (CK-2) Urine Ketones Urine Blood 03/22/18 03/22/18 03/22/18 01:43 08:30 10:16 RDW Sodium Chloride BUN Est GFR ( Amer) Est GFR (Non-Af Amer) AST Creatine Kinase 451 H CK-MB (CK-2) 12.90 H Urine Ketones TRACE H Urine Blood SMALL H 03/22/18 10:16 RDW Sodium Chloride BUN Est GFR ( Amer) Est GFR (Non-Af Amer) AST Creatine Kinase CK-MB (CK-2) 10.30 H Urine Ketones Urine Blood Discharge - Discharge Clinical Impression: Dehydration Altered mental status Qualifiers: Altered mental status type: unspecified Qualified Code(s): R41.82 - Altered mental status, unspecified Rhabdomyolysis Qualifiers: Rhabdomyolysis type: traumatic Encounter type: initial encounter Qualified Code(s): T79.6XXA - Traumatic ischemia of muscle, initial encounter Condition: Stable Disposition: ADMITTED INPATIENT Admitting Provider: Garcia Unit Admitted: Medical Floor
[2018-03-22 08:55] LABS: APPEARANCE,URINE CLEAR; BILIRUBIN,URINE NEGATIVE (NEGATIVE); COLOR,URINE YELLOW; GLUCOSE, URINE NEGATIVE (NEGATIVE); KETONES,URINE TRACE mg/dL (NEGATIVE); LEUKOCYTE ESTERASE,URINE NEGATIVE (NEGATIVE); NITRITE,URINE NEGATIVE (NEGATIVE); PROTEIN,URINE NEGATIVE (NEGATIVE); URINE SPECIFIC GRAVITY 1.016; UROBILINOGEN,URINE NEGATIVE mg/dL (<2.0)
[2018-03-22 10:02] LABS: CREATINE KINASE MB 12.9 ng/mL (<4.55)
[2018-03-22 10:12] LABS: TROPONIN I 0.042 ng/mL
[2018-03-22 11:07] LABS: CREATINE KINASE MB 10.3 ng/mL (<4.55); TROPONIN I 0.044 ng/mL
--- NOTE | 2018-03-22 16:31 | PDOC H&P ---
History of Present Illness Admission Date/PCP: 03/22/18 11:30 ISAC GREEN MD Patient complains of: family found on floor History of Present Illness: DEANDRE MITCHELL is a 82 year old female to confused to give history. In spite of severe hip & knee djd and dementia, she has steadfastly refused placement and home health. [facility] was called after last ov in they requested records. 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 Blanchard Lives with: Alone Smoking Status: Former Smoker Number of Years Smokin Last Time Smoked: 1989 Frequency of Alcohol Use: None Hx Recreational Drug Use: No Drugs: None Hx Prescription Drug Abuse: No - Advance Directive Resuscitation Status: Full Code Family History Family History: CAD, CVA, Hypertension Parental Family History Reviewed: Yes Children Family History Reviewed: Yes Sibling(s) Family History Reviewed.: Yes Medication/Allergy Home Medications: Allopurinol [Zyloprim 300 mg Tablet] 300 mg PO DAILY 03/22/18 Bumetanide [Bumex 1 mg Tablet] 1 mg PO DAILY 03/22/18 Glimepiride [Amaryl 1 mg Tablet] 1 mg PO DAILY 03/22/18 Nebivolol HCl [Bystolic] 20 mg PO BID 03/22/18 Valsartan [Diovan] 320 mg PO DAILY 03/22/18 Allergies/Adverse Reactions: No Known Allergies Allergy (Verified 04/28/17 22:56) Review of Systems ROS unobtainable: Due to mental status Constitutional: ABSENT: fever(s), weight loss Nose, Mouth, and Throat: ABSENT: sore throat Cardiovascular: ABSENT: chest pain, dyspnea on exertion, orthropnea Respiratory: ABSENT: cough Gastrointestinal: ABSENT: abdominal pain, constipation, diarrhea, hematochezia, vomiting Genitourinary: ABSENT: dysuria, hematuria Musculoskeletal: PRESENT: other - pain hips knees Integumentary: PRESENT: as per HPI Neurological: PRESENT: as per HPI, frequent falls, memory loss Psychiatric: PRESENT: as per HPI Physical Exam Vital Signs: Temp Pulse Resp BP Pulse Ox 98.8 F 77 15 152/81 H 94 03/22/18 09:35 03/22/18 09:37 03/22/18 12:02 03/22/18 12:02 03/22/18 12:02 Intake & Output 03/21/18 03/22/18 03/23/18 07:59 07:59 07:59 Weight 162 lb 4.163 oz General appearance: PRESENT: no acute distress Mouth exam: PRESENT: moist, neck supple Neck exam: ABSENT: lymphadenopathy, tenderness, thyromegaly, tracheal deviation Respiratory exam: PRESENT: clear to auscultation neelima Cardiovascular exam: ABSENT: diastolic murmur, irregular rhythm, systolic murmur GI/Abdominal exam: ABSENT: mass, organolmegaly, tenderness Extremities exam: PRESENT: pedal edema - 2+ to knees Musculoskeletal exam: PRESENT: tenderness - knee movement Neurological exam: ABSENT: oriented to situation Psychiatric exam: PRESENT: appropriate affect Results Laboratory Results: 03/22/18 01:43 03/22/18 01:43 Abnormal - 24 hr 03/22/18 03/22/18 03/22/18 01:43 01:43 01:43 RDW 16.4 H Sodium 145.5 H Chloride 110 H BUN 23 H Est GFR ( Amer) 56 L Est GFR (Non-Af Amer) 46 L AST 49 H Creatine Kinase 546 H CK-MB (CK-2) Urine Ketones Urine Blood 03/22/18 03/22/18 03/22/18 01:43 08:30 10:16 RDW Sodium Chloride BUN Est GFR ( Amer) Est GFR (Non-Af Amer) AST Creatine Kinase 451 H CK-MB (CK-2) 12.90 H Urine Ketones TRACE H Urine Blood SMALL H 03/22/18 10:16 RDW Sodium Chloride BUN Est GFR ( Amer) Est GFR (Non-Af Amer) AST Creatine Kinase CK-MB (CK-2) 10.30 H Urine Ketones Urine Blood Impressions: Chest X-Ray 03/22/18 01:30 IMPRESSION: Mild cardiomegaly. copyright 2010 [employer]- All Rights Reserved Head CT 03/22/18 01:30 IMPRESSION: Mild age-appropriate atrophy with minor small vessel ischemic change TECHNICAL DOCUMENTATION: Quality ID # 436: Final reports with documentation of one or more dose reduction techniques (e.g., Automated exposure control, adjustment of the mA and/or kV according to patient size, use of iterative reconstruction technique) copyright 2010 [employer]- All Rights Reserved Assessment & Plan - Diagnosis (1) Alzheimer's disease with late onset Qualifiers: Dementia behavioral disturbance: without behavioral disturbance Qualified Code(s): G30.1 - Alzheimer's disease with late onset; F02.80 - Dementia in other diseases classified elsewhere without behavioral disturbance Is this a current diagnosis for this admission?: Yes Plan: needs assisted living but I doubt will accept it (2) Rhabdomyolysis Qualifiers: Rhabdomyolysis type: traumatic Encounter type: initial encounter Qualified Code(s): T79.6XXA - Traumatic ischemia of muscle, initial encounter Is this a current diagnosis for this admission?: Yes Plan: hydrated. CK mild and decreasing. (3) Type 2 diabetes mellitus with diabetic chronic kidney disease Qualifiers: Diabetes mellitus assistant terminal manager insulin use: without assistant terminal manager use Chronic kidney disease stage: stage 3 (moderate) Qualified Code(s): E11.22 - Type 2 diabetes mellitus with diabetic chronic kidney disease; N18.3 - Chronic kidney disease, stage 3 (moderate) Is this a current diagnosis for this admission?: Yes Plan: is back glimepiride 1mg I stopped for hypoglycemia in november. (4) Chronic diastolic heart failure Is this a current diagnosis for this admission?: Yes (5) Primary osteoarthritis of both knees Is this a current diagnosis for this admission?: Yes (6) Primary osteoarthritis of both hips Is this a current diagnosis for this admission?: Yes (7) Idiopathic chronic gout of multiple sites without tophus Is this a current diagnosis for this admission?: Yes - Inpatient Certification Based on my medical assessment, after consideration of the patient's comorbidities, presenting symptoms, or acuity I expect that the services needed warrant INPATIENT care.: Yes I certify that my determination is in accordance with my understanding of Medicare's requirements for reasonable and necessary INPATIENT services [42 CFR 412.3e].: Yes Medical Necessity: Failure to Improve With Outpatient Therapy, Significant Comorbidiites Make Outpatient Treatment Too Risky, Need Close Monitoring Due to Risk of Patient Decompensation, Need For IV Fluids, Risk of Complication if Not Cared For in Hospital, Risk of Diagnosis Which Will Require Inpatient Eval/Care/Monitoring
--- NOTE | 2018-03-22 23:08 | EKG REPORT ---
SEVERITY:- ABNORMAL ECG - SINUS RHYTHM LVH WITH SECONDARY REPOLARIZATION ABNORMALITY : Confirmed by: Norm Tanner 22-Mar-2018 23:07:08
[2018-03-23 05:14] LABS: ANION GAP 8 (5-19); BLOOD UREA NITROGEN 21 mg/dL (7-20); CALCIUM 9.1 mg/dL (8.4-10.2); CARBON DIOXIDE 25 mmol/L (22-30); CHLORIDE 110 mmol/L (98-107); GLUCOSE 113 mg/dL (75-110); SODIUM 142.7 mmol/L (137-145)
--- NOTE | 2018-03-23 07:59 | PDOC PROGRESS REPORT ---
Subjective Progress Note for:: 03/23/18 Subjective:: no complaints Reason For Visit: RHABDOMYOLYSIS Physical Exam Vital Signs: Temp Pulse Resp BP Pulse Ox 98.8 F 78 16 162/51 H 96 03/22/18 23:55 03/22/18 23:55 03/22/18 23:55 03/22/18 23:55 03/22/18 23:55 Intake & Output 03/21/18 03/22/18 03/23/18 07:59 07:59 07:59 Intake Total 1000 Balance 1000 Weight 162 lb 4.163 oz 158 lb 1.143 oz General appearance: PRESENT: no acute distress Respiratory exam: PRESENT: clear to auscultation neelima Cardiovascular exam: ABSENT: diastolic murmur, irregular rhythm, systolic murmur GI/Abdominal exam: ABSENT: mass, organolmegaly, tenderness Extremities exam: ABSENT: pedal edema Neurological exam: ABSENT: oriented to situation Psychiatric exam: PRESENT: appropriate affect Results Laboratory Results: 03/22/18 01:43 03/23/18 04:22 03/22/18 03/23/18 08:30 04:22 Sodium 142.7 Potassium 4.0 Chloride 110 H Carbon Dioxide 25 Anion Gap 8 BUN 21 H Creatinine 1.13 Est GFR ( Amer) 56 L Est GFR (Non-Af Amer) 46 L Glucose 113 H Calcium 9.1 Urine Color YELLOW Urine Appearance CLEAR Urine pH 6.0 Ur Specific [place] 1.016 Urine Protein NEGATIVE Urine Glucose (UA) NEGATIVE Urine Ketones TRACE H Urine Blood SMALL H Urine Nitrite NEGATIVE Ur Leukocyte Esterase NEGATIVE Urine WBC (Auto) 1 Urine RBC (Auto) 0 03/22/18 03/22/18 03/22/18 01:43 01:43 10:16 Creatine Kinase 546 H 451 H CK-MB (CK-2) 12.90 H Troponin I 0.042 03/22/18 10:16 Creatine Kinase CK-MB (CK-2) 10.30 H Troponin I 0.044 Impressions: Chest X-Ray 03/22/18 01:30 IMPRESSION: Mild cardiomegaly. copyright 2011 [employer]- All Rights Reserved Head CT 03/22/18 01:30 IMPRESSION: Mild age-appropriate atrophy with minor small vessel ischemic change TECHNICAL DOCUMENTATION: Quality ID # [id number]: Final reports with documentation of one or more dose reduction techniques (e.g., Automated exposure control, adjustment of the mA and/or kV according to patient size, use of iterative reconstruction technique) copyright 2011 [employer]- All Rights Reserved Assessment & Plan - Diagnosis (1) Alzheimer's disease with late onset Qualifiers: Dementia behavioral disturbance: without behavioral disturbance Qualified Code(s): G30.1 - Alzheimer's disease with late onset; F02.80 - Dementia in other diseases classified elsewhere without behavioral disturbance Is this a current diagnosis for this admission?: Yes Plan: needs placement (2) Rhabdomyolysis Qualifiers: Rhabdomyolysis type: traumatic Encounter type: initial encounter Qualified Code(s): T79.6XXA - Traumatic ischemia of muscle, initial encounter Is this a current diagnosis for this admission?: Yes Plan: improved (3) Type 2 diabetes mellitus with diabetic chronic kidney disease Qualifiers: Diabetes mellitus senior living insulin use: without truck terminal manager use Chronic kidney disease stage: stage 3 (moderate) Qualified Code(s): E11.22 - Type 2 diabetes mellitus with diabetic chronic kidney disease; N18.3 - Chronic kidney disease, stage 3 (moderate) Is this a current diagnosis for this admission?: Yes (4) Chronic diastolic heart failure Is this a current diagnosis for this admission?: Yes (5) Primary osteoarthritis of both knees Is this a current diagnosis for this admission?: Yes (6) Primary osteoarthritis of both hips Is this a current diagnosis for this admission?: Yes (7) Idiopathic chronic gout of multiple sites without tophus Is this a current diagnosis for this admission?: Yes - Inpatient Certification Medical Necessity: Failure to Improve With Outpatient Therapy, Significant Comorbidiites Make Outpatient Treatment Too Risky, Need Close Monitoring Due to Risk of Patient Decompensation, Risk of Complication if Not Cared For in Hospital, Risk of Diagnosis Which Will Require Inpatient Eval/Care/Monitoring
[2018-03-23] MEDS: VALSARTAN 160 MG TABLET PO SCH (09:13)
[2018-03-23] MEDS: BUMETANIDE 1 MG TABLET PO SCH (09:13)
[2018-03-23] MEDS: ALLOPURINOL 300 MG TABLET PO SCH (09:14)
[2018-03-23] MEDS: METOPROLOL SUCCINATE 50 MG TAB.SR.24H PO SCH (09:14)
[2018-03-23] MEDS: ENOXAPARIN SODIUM INJ 30 MG/0.3 ML DISP.SYRIN SUBCUT SCH (09:14)
[2018-03-23] MEDS: AMLODIPINE BESYLATE 10 MG TABLET PO SCH (17:32)
--- NOTE | 2018-03-24 07:58 | PDOC DISCHARGE SUMMARY ---
General - Admit/Disc Date/PCP Admission Date/Primary Care Provider: 03/22/18 11:30 ISAC GREEN MD Discharge Date: 03/24/18 - Discharge Diagnosis (1) Alzheimer's disease with late onset Is this a current diagnosis for this admission?: Yes (2) Rhabdomyolysis Is this a current diagnosis for this admission?: Yes (3) Type 2 diabetes mellitus with diabetic chronic kidney disease Is this a current diagnosis for this admission?: Yes (4) Chronic diastolic heart failure Is this a current diagnosis for this admission?: Yes (5) Primary osteoarthritis of both knees Is this a current diagnosis for this admission?: Yes (6) Primary osteoarthritis of both hips Is this a current diagnosis for this admission?: Yes (7) Idiopathic chronic gout of multiple sites without tophus Is this a current diagnosis for this admission?: Yes - Additional Information Resuscitation Status: Full Code Discharge Diet: Cardiac Discharge Activity: Activity As Tolerated Home Medications: Allopurinol [Zyloprim 300 mg Tablet] 300 mg PO DAILY 03/22/18 Bumetanide [Bumex 1 mg Tablet] 1 mg PO DAILY 03/22/18 Glimepiride [Amaryl 1 mg Tablet] 1 mg PO DAILY 03/22/18 Nebivolol HCl [Bystolic] 20 mg PO BID 03/22/18 Valsartan [Diovan] 320 mg PO DAILY 03/22/18 History of Present Illness Patient complains of: found on floor History of Present Illness: DEANDRE MITCHELL is a 82 year old female to confused to give history. In spite of severe hip & knee djd and dementia, she has steadfastly refused placement and home health. APS was called after last ov in they requested records. Hospital Course Hospital Course: CK trended down with ivf. She reiterated her determination to live alone in spite of significant limitation of mobility. Physical Exam Vital Signs: Temp Pulse Resp BP Pulse Ox 99.4 F 74 16 170/60 H 96 03/24/18 00:12 03/24/18 00:12 03/24/18 00:12 03/24/18 00:12 03/24/18 00:12 Intake & Output 03/22/18 03/23/18 03/24/18 07:59 07:59 07:59 Intake Total 1000 840 Output Total 400 Balance 1000 440 Weight 162 lb 4.163 oz 158 lb 1.143 oz 158 lb 15.253 oz General appearance: PRESENT: no acute distress Respiratory exam: PRESENT: clear to auscultation neelima Cardiovascular exam: ABSENT: diastolic murmur, irregular rhythm, systolic murmur GI/Abdominal exam: ABSENT: mass, organolmegaly, tenderness Extremities exam: ABSENT: pedal edema Neurological exam: PRESENT: alert Psychiatric exam: PRESENT: appropriate affect Results Laboratory Results: 03/22/18 01:43 03/23/18 04:22 Labs- Last Values WBC 5.5 10^3/uL (4.0-10.5) 03/22/18 01:43 RBC 4.21 10^6/uL (3.72-5.28) 03/22/18 01:43 Hgb 12.4 g/dL (12.0-15.5) 03/22/18 01:43 Hct 37.1 % (36.0-47.0) 03/22/18 01:43 MCV 88 fl (80-97) 03/22/18 01:43 MCH 29.4 pg (27.0-33.4) 03/22/18 01:43 MCHC 33.3 g/dL (32.0-36.0) 03/22/18 01:43 RDW 16.4 % (11.5-14.0) H 03/22/18 01:43 Plt Count 153 10^3/uL (150-450) 03/22/18 01:43 Seg Neutrophils % 65.3 % (42-78) 03/22/18 01:43 Lymphocytes % 23.7 % (13-45) 03/22/18 01:43 Monocytes % 9.8 % (3-13) 03/22/18 01:43 Eosinophils % 0.4 % (0-6) 03/22/18 01:43 Basophils % 0.8 % (0-2) 03/22/18 01:43 Absolute Neutrophils 3.6 10^3/uL (1.7-8.2) 03/22/18 01:43 Absolute Lymphocytes 1.3 10^3/uL (0.5-4.7) 03/22/18 01:43 Absolute Monocytes 0.5 10^3/uL (0.1-1.4) 03/22/18 01:43 Absolute Eosinophils 0.0 10^3/uL (0.0-0.6) 03/22/18 01:43 Absolute Basophils 0.0 10^3/uL (0.0-0.2) 03/22/18 01:43 Sodium 142.7 mmol/L (137-145) 03/23/18 04:22 Potassium 4.0 mmol/L (3.6-5.0) 03/23/18 04:22 Chloride 110 mmol/L (98-107) H 03/23/18 04:22 Carbon Dioxide 25 mmol/L (22-30) 03/23/18 04:22 Anion Gap 8 (5-19) 03/23/18 04:22 BUN 21 mg/dL (7-20) H 03/23/18 04:22 Creatinine 1.13 mg/dL (0.52-1.25) 03/23/18 04:22 Est GFR ( Amer) 56 (>60) L 03/23/18 04:22 Est GFR (Non-Af Amer) 46 (>60) L 03/23/18 04:22 Glucose 113 mg/dL (75-110) H 03/23/18 04:22 Calcium 9.1 mg/dL (8.4-10.2) 03/23/18 04:22 Total Bilirubin 0.7 mg/dL (0.2-1.3) 03/22/18 01:43 Direct Bilirubin 0.3 mg/dL (0.0-0.4) 03/22/18 01:43 Neonat Total Bilirubin Not Reportable 03/22/18 01:43 Neonat Direct Bilirubin Not Reportable 03/22/18 01:43 Neonat Indirect Bili Not Reportable 03/22/18 01:43 AST 49 U/L (14-36) H 03/22/18 01:43 ALT 16 U/L (9-52) 03/22/18 01:43 Alkaline Phosphatase 70 U/L (38-126) 03/22/18 01:43 Creatine Kinase 451 U/L (30-135) H 03/22/18 10:16 CK-MB (CK-2) 10.30 ng/mL (<4.55) H 03/22/18 10:16 Troponin I 0.044 ng/mL 03/22/18 10:16 Total Protein 7.3 g/dL (6.3-8.2) 03/22/18 01:43 Albumin 4.3 g/dL (3.5-5.0) 03/22/18 01:43 Urine Color YELLOW 03/22/18 08:30 Urine Appearance CLEAR 03/22/18 08:30 Urine pH 6.0 (5.0-9.0) 03/22/18 08:30 Ur Specific [place] 1.016 03/22/18 08:30 Urine Protein NEGATIVE mg/dL (NEGATIVE) 03/22/18 08:30 Urine Glucose (UA) NEGATIVE mg/dL (NEGATIVE) 03/22/18 08:30 Urine Ketones TRACE mg/dL (NEGATIVE) H 03/22/18 08:30 Urine Blood SMALL (NEGATIVE) H 03/22/18 08:30 Urine Nitrite NEGATIVE (NEGATIVE) 03/22/18 08:30 Urine Bilirubin NEGATIVE (NEGATIVE) 03/22/18 08:30 Urine Urobilinogen NEGATIVE mg/dL (<2.0) 03/22/18 08:30 Ur Leukocyte Esterase NEGATIVE (NEGATIVE) 03/22/18 08:30 Urine WBC (Auto) 1 /HPF 03/22/18 08:30 Urine RBC (Auto) 0 /HPF 03/22/18 08:30 Squamous Epi Cells Auto <1 /HPF 03/22/18 08:30 Urine Mucus (Auto) RARE /LPF 03/22/18 08:30 Urine Ascorbic Acid NEGATIVE (NEGATIVE) 03/22/18 08:30 Impressions: Chest X-Ray 03/22/18 01:30 IMPRESSION: Mild cardiomegaly. copyright 2011 [employer]- All Rights Reserved Head CT 03/22/18 01:30 IMPRESSION: Mild age-appropriate atrophy with minor small vessel ischemic change TECHNICAL DOCUMENTATION: Quality ID # 436: Final reports with documentation of one or more dose reduction techniques (e.g., Automated exposure control, adjustment of the mA and/or kV according to patient size, use of iterative reconstruction technique) copyright 2011 [employer]- All Rights Reserved Qualifiers - * PATIENT BEING DISCHARGED WITH ANY OF THE FOLLOWING DIAGNOSIS: No Plan Discharge Plan: Home. OV 1w. Will not let home health in door.
[2018-03-24] MEDS: ENOXAPARIN SODIUM INJ 30 MG/0.3 ML DISP.SYRIN SUBCUT SCH (10:16)
[2018-03-24] MEDS: AMLODIPINE BESYLATE 10 MG TABLET PO SCH (10:25)
[2018-03-24] MEDS: VALSARTAN 160 MG TABLET PO SCH (10:26)
[2018-03-24] MEDS: BUMETANIDE 1 MG TABLET PO SCH (10:26)
[2018-03-24] MEDS: METOPROLOL SUCCINATE 50 MG TAB.SR.24H PO SCH (10:26)
[2018-03-24] MEDS: ALLOPURINOL 300 MG TABLET PO SCH (10:26)
[2018-03-24 11:58] VITALS: BP 145/47
[2018-03-24 12:22] LABS: ANION GAP 9 (5-19); BLOOD UREA NITROGEN 18 mg/dL (7-20); CALCIUM 9.2 mg/dL (8.4-10.2); CARBON DIOXIDE 29 mmol/L (22-30); CHLORIDE 105 mmol/L (98-107); GLUCOSE 136 mg/dL (75-110); POTASSIUM 3.5 mmol/L (3.6-5.0); SODIUM 142.7 mmol/L (137-145)
== END 2018-03-24 13:05 | disposition home health service (06) ==
LOC: ER 22:26 → EH 03-22 11:30 → INTOOBSV 03-22 11:30 → 5 03-22 21:45
PROVIDERS: ADMIT Family Medicine; ATTEND Family Medicine
DX: G30.1 Alzheimer's disease with late onset (principal); F02.80 Dementia in other diseases classified elsewhere, unspecified severity, without behavioral disturbance, psychotic disturbance, mood disturbance, and anxiety; T79.6XXA Traumatic ischemia of muscle, initial encounter; X58.XXXA Exposure to other specified factors, initial encounter; E11.22 Type 2 diabetes mellitus with diabetic chronic kidney disease; I13.0 Hypertensive heart and chronic kidney disease with heart failure and stage 1 through stage 4 chronic kidney disease, or unspecified chronic kidney disease; N18.3 Chronic kidney disease, stage 3 (moderate); I50.32 Chronic diastolic (congestive) heart failure; M16.0 Bilateral primary osteoarthritis of hip; M17.0 Bilateral primary osteoarthritis of knee; Z60.2 Problems related to living alone; M1A.09X0 Idiopathic chronic gout, multiple sites, without tophus (tophi); E87.0 Hyperosmolality and hypernatremia; E86.0 Dehydration; R29.6 Repeated falls; Z79.899 Other long term (current) drug therapy; Z87.891 Personal history of nicotine dependence; Z96.641 Presence of right artificial hip joint; Z82.49 Family history of ischemic heart disease and other diseases of the circulatory system
CPT/HCPCS: 93005; 99285; 96360; 96361; 36415 ×3; 82553; 82550; 85025; 80048 ×2; 80053; 81001; 84484; 71045; 70450; 93010; A9270 ×10; J1650; J7120; 90471; 90686; G0008; J3490